=== PATIENT | female | born 1970 | race Caucasian/White ===

== ENCOUNTER 2020-12-17 13:01 | Emergency (ER) | payer OTHER, SELFPAY | END 2020-12-17 13:56 | disposition left against medical advice (07) | PROVIDERS: Emergency Provider Emergency Medicine | DX: Z20.822 Contact with and (suspected) exposure to COVID-19 (principal) ==

== ENCOUNTER 2025-03-02 14:32 | Emergency (ER) | payer SELFPAY ==
[2025-03-02 15:00] VITALS: BP 136/86; PULSE 98; O2SAT 96
--- NOTE | 2025-03-02 15:42 | PC.NURSE ---
patient called to triage again w/ no answer
--- OUTSIDE RECORDS SUMMARY | 2025-03-02 18:07 | XMS_ITS | Clinical Summary ---
Author Organization [facility] Address [address] [place] [address] Care Team Providers Care Head Of Physics Name Role Phone Dean Caraballo PA-C Primary Care Provider [phone] Source Comments PLEASE NOTE, if this patient is a minor, it may be UNLAWFUL to discuss sensitive information that is contained in these records (such as FAMILY PLANNING, MENTAL HEALTH or SUBSTANCE ABUSE) with the minor patient's parent or other person without the patient's specific authorization.[facility] Social History Tobacco Use Types Packs/Day Years Used Date Smoking Tobacco: Never Assessed Social Connections Answer Date Recorded Social Connections and Isolation 0 10/03/2020 Financial Resource Strain Answer Date R ecorded Financial Resource Strain 0 2019 Stress Answer Date Recorded Stress 0 10/03/2020 Physical Activity Answer Date Recorded Physical Activity 0 10/03/2020 Food Insecurity Answer Date Recorded Food 0 10/03/2020 Transportation Needs Answer Date Record ed Transportation 0 10/03/2020 Housing Stability Answer Date Recorded Housing 0 10/03/2020 Safety and Environment Answer Date Micheal rded Safety 0 10/03/2020 Utilities Answer Date Recorded Utilities 0 10/03/2020 Employment Answer Date Recorded Employment 0 10/03/2020 Comments Unknown Sex and Gender Information Value Date Recorded Sex Assigned at Not on file Legal Sex Female 6:09 AM PDT Gender Identity Not on file Sexual Orientation Not on file Plan of Treatment Not on file Insurance [employer] Care Teams Head Of Physics Relationship Specialty Start Date End Date Dean Caraballo PA-C [address] [place] [address] PCP - General FAMILY MEDICINE[facility]ORIN 08/29/20
== END 2025-03-02 15:41 | disposition left against medical advice (07) ==
PROVIDERS: Emergency Provider Emergency Medicine
DX: R10.9 Unspecified abdominal pain (principal); Z53.21 Procedure and treatment not carried out due to patient leaving prior to being seen by health care provider